=== PATIENT | female | born 1990 | race Two or more races ===

== ENCOUNTER → 2019-07-11 09:17 | Outpatient (CLI) | payer OTHER, SELFPAY ==
--- NOTE | ~2019-07-11 | US_ITS ---
EXAMINATION: US OB follow up DATE: 07/11/2019 09:41 INDICATION: Estimated weight, presentation, SEBASTIEN and placental location TECHNIQUE: Real-time transabdominal obstetric ultrasound. FINDINGS: Comparison to multiple prior studies sequentially, with oldest reviewed study dated 019. There is a single living fetus in vertex presentation. The placenta is anterior without placenta pre via. cardiac activity and movement is noted with a heart rate of 151 beats per minute. T he amniotic fluid volume is normal. SEBASTIEN measures 14.4 cm. The following biometric data were obtained: BPD: 89mm corresponds to gestational age 36 weeks 0 days. Head circumference: 332mm corresponds to gestational age 37 weeks 6 days. Abdominal circumference: 332mm corresponds to gestational age 37 weeks 1 days. Femur length: 68mm corresponds to gestational age 34 weeks 5 days. Estimated weight: 2947grams +/- 442grams.] IMPRESSION: 1. Single living intrauterine in vertex presentation presentation with an estimated gestat ional age of 35 weeks 3 days by inititial ultrasound. Appropriate interval growth. 2: Normal SEBASTIEN measures 14.4 cm. 3: Anterior placenta without previa. Reviewed, dictated and finalized at location A. [facility] [employer]SPORTATION INSPECTOR IMPRESSION: 1. Single living intrauterine in vertex presentation presentation wi th an estimated gestational age of 35 weeks 3 days by inititial ultrasound. Ap propriate interval growth. 2: Normal SEBASTIEN measures 14.4 cm. 3: Anterior placenta without previa.
== END ==
PROVIDERS: PCP Family Medicine; Visit Provider Obstetrics & Gynecology
DX: Z34.90 Encounter for supervision of normal pregnancy, unspecified, unspecified trimester (principal); Z3A.00 Weeks of gestation of pregnancy not specified
CPT/HCPCS: 76816

== ENCOUNTER 2019-08-05 09:25 | Inpatient (IN) | payer OTHER, SELFPAY ==
[2019-08-05] VITALS (82 sets, daily range): BP systolic 62–136; BP diastolic 39–93; PULSE 63–201; TEMP 36.4–37.3; O2SAT 88–100; BMI 31.7
[2019-08-05 11:03] LABS: Basophils Percent Auto 0.2 % (0.2-1.2); Eosinophils Absolute Auto 0.1 K/mm3 (0-0.3); Eosinophils Percent Auto 1.3 % (0-4.4); Hematocrit 35.4 % (37.0-47.0); Hemoglobin 10.8 g/dL (12.0-15.0); Immature Granulocyte Absolute 0.03 K/mm3 (0.00-0.031); Immature Granulocyte Percent A 0.5 % (0-0.5); Lymphocytes Absolute Auto 1.76 K/mm3 (0.9-3.2); Lymphocytes Percent Auto 31.8 % (18.3-44.2); Mean Corpuscular HGB Conc 30.5 g/dl (32-36); Mean Corpuscular Hemoglobin 24.4 pg (26-34); Mean Corpuscular Volume 79.9 fl (80-100); Mean Platelet Volume 10.6 fl (7.4-10.4); Monocytes Absolute Auto 0.4 K/mm3 (0.1-0.6); Neutrophils Absolute Auto 3.2 K/mm3 (1.3-6.7); Neutrophils Percent Auto 58.2 % (45.5-73.1); Platelet Count Result 263 k/mm3 (150-375); Red Blood Count 4.43 M/mm3 (4.2-5.4); Red Cell Distribution Width 14.7 % (11.5-14.5); White Blood Count 5.5 K/mm3 (4.5-10.0)
--- NOTE | 2019-08-05 11:11 | LDADM ---
This patient, Janice Galan, was admitted to Labor/Delivery/Recovery 107 on 08/05/19 at 09:25. Plans for labor, pain management and were discussed with patient. Patient/family oriented to hospital policies and general routines including ID bracelet, bed and alarms, visiting hours, pain management, procedures, bathroom and other care routines, personal items, smoking policy, room service/diet and guest tray routines, infant security routines, and visiting hours. Patient/Family are encouraged to report perceived risks to care and to ask questions if they do not understand what they are told or what they should do. See OBIX for further documentation.
[2019-08-05 11:55] LABS: HIV 1/2 Ab P24 Ag Result Negative (Negative)
--- NOTE | 2019-08-05 12:35 | WPDOBADMIT ---
Obstetrics - Admit Note Admission Note: record reviewed. Additions to the history and/or subsequent changes in the physical findings follow. 29 y/o at 39 weeks. She was in the office for a routine visit and had a gush of fluid. [facility] here on L&D was positive. She has been admitted for labor. GBS neg. AVSS NST reactive TOCO: contractions irregularly ABD soft, nontender, gravid, vertex EXT nontender Cervix 2cm per RN. A: IUP at term with SROM. P: Anticipate . Augment labor as needed.
[2019-08-05] MEDS: LACTATED RINGERS 1,000 ML 125 ML IV CONT ×3 (12:45→18:09)
[2019-08-05] MEDS: OXYTOCIN 30 UNITS/NS 500 ML 30 UNITS/500 ML BAG IV CONT (12:47)
--- NOTE | 2019-08-05 17:27 | WPDANESEPPF ---
Anes - Initial Pre Proc Eval Date/Time: 08/05/19 17:27 Surgeon: Chris Perez MD Pre Op Diagnosis: SROM/Labor Patient Data Age: 29 Gender: F Height: 5 ft 2 in Weight: 78.64 kg Last Vital Signs Temp 36.6 C 08/05/19 17:24 Pulse 82 08/05/19 17:26 BP 115/71 08/05/19 17:26 Pulse Ox 96 08/05/19 17:26 Allergies Allergy/AdvReac Type Severity Reaction Status Date / Time No Known Allergies Allergy Verified 07/08/19 11:40 Home Medications Medication Instructions Recorded Confirmed Type No Home Medications 07/08/19 08/05/19 History Laboratory Tests 08/05/19 08/05/19 08/05/19 10:51 10:51 10:51 WBC 5.5 K/mm3 K/mm3 (4.5-10.0) RBC 4.43 M/mm3 M/mm3 (4.2-5.4) Hgb 10.8 g/dL L g/dL (12.0-15.0) Hct 35.4 % L % (37.0-47.0) MCV 79.9 fl L fl (80-100) MCH 24.4 pg L pg (26-34) MCHC 30.5 g/dl L g/dl (32-36) RDW 14.7 % H % (11.5-14.5) Plt Count 263 k/mm3 k/mm3 (150-375) MPV 10.6 fl H fl (7.4-10.4) Immature Gran % (Auto) 0.5 % % (0-0.5) Neut % (Auto) 58.2 % % (45.5-73.1) Lymph % (Auto) 31.8 % % (18.3-44.2) [place] % (Auto) 8.0 % % (2.6-8.5) Eos % (Auto) 1.3 % % (0-4.4) Baso % (Auto) 0.2 % % (0.2-1.2) Lymph # (Auto) 1.76 K/mm3 K/mm3 (0.9-3.2) [place] # (Auto) 0.4 K/mm3 K/mm3 (0.1-0.6) Eos # (Auto) 0.1 K/mm3 K/mm3 (0-0.3) Baso # (Auto) 0.0 K/mm3 K/mm3 (0.0-0.1) Abs Immat Gran (auto) 0.03 K/mm3 K/mm3 (0.00-0.031) Absolute Neuts (auto) 3.2 K/mm3 K/mm3 (1.3-6.7) Absolute Nucleated RBC 0.0 K/mm3 K/mm3 (0.0-0.012) Nucleated RBC % 0.0 % % (0.0-0.2) RPR Pending HIV 1&2 Ab/P24 Ag 4thGn Negative (Negative) Blood Type Antibody Screen 08/05/19 10:51 WBC RBC Hgb Hct MCV MCH MCHC RDW Plt Count MPV Immature Gran % (Auto) Neut % (Auto) Lymph % (Auto) [place] % (Auto) Eos % (Auto) Baso % (Auto) Lymph # (Auto) [place] # (Auto) Eos # (Auto) Baso # (Auto) Abs Immat Gran (auto) Absolute Neuts (auto) Absolute Nucleated RBC Nucleated RBC % RPR HIV 1&2 Ab/P24 Ag 4thGn Blood Type O Positive Antibody Screen Negative Patient hx anesthesia problems: none Family hx anesthesia problems: none PMFSH Past Medical History Medical History Healthy adult Surgical History Surgical History Hx of LASIK Family History Family History Mother Diabetes mellitus Hyperlipidemia Father Hypertension Hyperlipidemia Social History Social History Smoking status: Never smoker Second hand tobacco smoke exposure: No Alcohol intake: never Substance use: never Gender identity (if verbalized by the patient): Female Spiritual care concerns: No Anes - Eval Final PreProcedure Day of Procedure 08/05/19 17:27 Patient weight: obese Neurological: alert and oriented ASA classification: II Emergent: no Anesthetic plan: proceed Anesthesia type and monitoring: regional epidural and standard monitoring Informed Consent: The patient's anesthetic plan and its attendant risks and benefits were discussed with the patient/family/POA. Questions were solicited and answers provided to the satisfaction of the patient/family/POA.
--- NOTE | 2019-08-05 22:16 | PM.OBPNLAB ---
Pain Control Date/time seen: 08/05/19 22:16 Comments: Comfortable with epidural, but feeling more pressure. Pelvic Exam Comments: AVSS NST reactive TOCO: contractions every 2-3 min Cervix C/+1 Assessment and Plan Comments: Begin pushing.
--- NOTE | 2019-08-05 23:32 | P.PCNOB_ITS ---
OB - Delivery Note Procedure Delivery date: 08/05/19 Procedure: SROM with Induction method: none Delivery augmentation: pitocin Delivery monitor: external FHT and external uterine Route of delivery: Laceration description: Perineal - 2nd Degree Delivery repair: vicryl (3-0) Specimen: Yes (cord blood) Estimated blood loss (mL): 75 Anesthesia type: Epidural Disposition: PACU Complications: Shoulder dystocia Narrative: 29 y/o at 39 weeks gestation who presented to the hospital after a gush of clear fluid. SROM was confirmed. Oxytocin was subsequently administered intravenously. She received an epidural for pain control. Her labor progressed and her cervix dilated completely. She pushed with good effort and delivered the 's head to the perineum from FRANSISCO position. A shoulder dystocia was encountered. Traction on the head and fundal pressure were strictly avoided. The posterior (left) shoulder was grasped and rotated in a counterclockwise fashion, dislodging the anterior shoulder and effecting delivery of the body. The nose and mouth were bulb suctioned. After a delay, the cord was clamped and cut. The infant was handed off the field. Cord blood was collected. The placenta delivered spontaneously and was grossly normal in appearance. The usual 3 vessel cord was noted. A second degree midline pe rineal laceration was sustained. This was reapproximated using 3 0 Vicryl in the usual layered fashion. Excellent hemostasis resulted as did excellent reapproximation of the normal anatomy. Needle and instrument counts were correct. The patient was taken to recovery room in stable condition. The infant went to the nursery in stable condition. I was present and scrubbed for the entire delivery. Baby Date of : 08/05/19 Time of : 23:11 Weeks of gestation at delivery: 39 Infant gender: Male Weight (pounds): 8 Weight (ounces): 3 presentation: vertex Placenta delivery description: Spontaneous and Normal Configuration cord vessel description: 3 Vessels score one minute: 7 score five minutes: 9
--- NOTE | 2019-08-05 23:37 | PM.OBDSVD ---
DS: Diagnosis Discharge Diagnosis (1) SROM (spontaneous rupture of membranes): Status: Acute (2) (normal spontaneous vaginal delivery): Code(s): O80 - Encounter for full-term uncomplicated delivery Status: Acute OB - DS: Summary OB Procedures : None OB Procedures Intrapartum: Spontaneous Vag Delivery OB Procedures: : None DS: Data Data Completed and Pending Labs on day of discharge: Labs from last 24 hours 08/05/19 08/05/19 08/05/19 10:51 10:51 10:51 WBC 5.5 RBC 4.43 Hgb 10.8 L Hct 35.4 L MCV 79.9 L MCH 24.4 L MCHC 30.5 L RDW 14.7 H Plt Count 263 MPV 10.6 H Immature Gran % (Auto) 0.5 Neut % (Auto) 58.2 Lymph % (Auto) 31.8 [place] % (Auto) 8.0 Eos % (Auto) 1.3 Baso % (Auto) 0.2 Lymph # (Auto) 1.76 [place] # (Auto) 0.4 Eos # (Auto) 0.1 Baso # (Auto) 0.0 Abs Immat Gran (auto) 0.03 Absolute Neuts (auto) 3.2 Absolute Nucleated RBC 0.0 Nucleated RBC % 0.0 RPR Pending HIV 1&2 Ab/P24 Ag 4thGn Blood Type O Positive Antibody Screen Negative 08/05/19 10:51 WBC RBC Hgb Hct MCV MCH MCHC RDW Plt Count MPV Immature Gran % (Auto) Neut % (Auto) Lymph % (Auto) [place] % (Auto) Eos % (Auto) Baso % (Auto) Lymph # (Auto) [place] # (Auto) Eos # (Auto) Baso # (Auto) Abs Immat Gran (auto) Absolute Neuts (auto) Absolute Nucleated RBC Nucleated RBC % RPR HIV 1&2 Ab/P24 Ag 4thGn Negative Blood Type Antibody Screen Discharge Plan Discharge Attending physician on discharge: Chris Perez Consulting providers: Julio C Burns Discharging Clinician: Chirs Perez Patient Disposition: Home, Self-Care Activity: pelvic rest Diet: regular Discharge Instructions: Call or return if temperature above 100.4? F, increased abdominal pain, increased vaginal bleeding or any new problems. Education: Mom and Baby Guide and Preeclampsia Handout Given to: Mother Follow-Up: Call your delivering provider's office for an appointment to be seen in: 4-6 weeks Mom and baby should come to the [facility] for the follow-up appointment. Appointment Date/Time: August 10, 2019 at 11:00 am What to expect at your follow-up visit: Physical Assessment Call [phone] if you are unable to keep your appointment time. BREAST CARE: 1. Wear a snug supportive bra. 2. For engorgement discomfort: Breast Feeding: A. Apply warm moist washcloths B. Express milk as needed to relieve engorgement C. Wear loose clothing 3. For sore nipples: A. Identify correct latch-on B. Apply warm moist washcloths before and after nursing C. Air dry nipples after nursing D. May apply Lansinoh cream to nipples EPISIOTOMY/PERINEAL CARE: 1. Until bleeding stops, use your fatoumata bottle after urinating 2. Change your pad frequently throughout the day 3. You may take sitz baths several times a day (fill your bathtub with warm water and soak for 20 minutes.) Do NOT bathe in the water 4. No tub baths until seen by your physician - You may shower ACTIVITY: 1. Rest as much as possible. 2. Do not exercise or lift anything heavier than your baby (such as laundry or other children.) 3. Avoid stairs or driving as much as possible. 4. Do not put anything into the vagina. No douching, tampons, or sexual activity until seen by physician. NOTIFY PHYSICIAN IF YOU HAVE ANY QUESTIONS OR IF ANY OF THE FOLLOWING SYMPTOMS OCCUR: 1. If your episiotomy becomes red, swollen, or more painful than what you have experienced in the hospital. 2. If your vaginal bleeding becomes foul smelling. 3. If your vaginal bleeding becomes more heavy than a period or if your bleeding changes from pink to bright red. However, you may pass an occasional walnut-sized clot once or twice for the first week . 4. If you exp
[2019-08-05] MEDS: OXYTOCIN 30 UNITS/NS 500 ML 30 UNITS/500 ML BAG 125 UNITS IV CONT (23:44)
[2019-08-06] VITALS (9 sets, daily range): BP systolic 98–118; BP diastolic 56–78; PULSE 77–119; RESP 16–18; TEMP 36.5–37.1; O2SAT 97–100
--- NOTE | 2019-08-06 01:44 | OBPPTRN ---
Patient transferred to post room #286 via wheelchair with baby in bassinet. Support person present. Oriented to unit, room, information board, rooming in, admission packet and security measures. Patient verbalizes understanding.
[2019-08-06] MEDS: IBUPROFEN 600 MG TABLET PO ×2 (02:15→13:39)
[2019-08-06 05:48] LABS: Hematocrit 28.2 % (37.0-47.0); Hemoglobin 8.8 g/dL (12.0-15.0)
[2019-08-06] MEDS: MULTIVIT/MIN/PREN/FOL AC/IRON TABLET 1 TAB PO (08:13)
[2019-08-06] MEDS: POLYSACCHARIDE IRON COMPLEX 150 MG CAPSULE PO ×2 (08:13→18:08)
[2019-08-06] MEDS: DOCUSATE SODIUM 100 MG CAPSULE PO ×2 (08:13→18:08)
[2019-08-06 08:51] LABS: Rapid Plasma Reagin Non-Reactive (NonReactive)
--- NOTE | 2019-08-06 17:01 | PM.OBPNVD ---
OB - PN: Subj Subjective Date/time seen: 08/06/19 17:01 Narrative: Pain OK. Would like cirumcision for son. OB - PN: Obj Data Labs CBC & Chem 7: 08/06/19 05:36 Labs: Laboratory Results - last 24 hr 08/05/19 08/06/19 10:51 05:36 Hgb 8.8 L Hct 28.2 L RPR Non-reactive OB - PN A/P Plan Comments: A: PPD#1, doing well. P: Routine care. Reviewed circ. Exam Psych: Other: AVSS ABD soft, nontender, fundus firm EXT nontender
[2019-08-07] MEDS: IBUPROFEN 600 MG TABLET PO ×2 (02:20→11:44)
--- NOTE | 2019-08-07 07:21 | PM.OBDSVD ---
OB - DS: Summary OB Procedures : None OB Procedures Intrapartum: Spontaneous Vag Delivery OB Procedures: : None Status at Discharge Functional status at discharge: independent ambulation Overall status at discharge: patient is back to baseline Time Spent with Patient Time attestation: Total time spent providing and/or coordinating discharge services: Time spent: Less than 30 minutes Exam Const: General: comfortable and no acute distress Resp: Effort & Inspection: normal respiratory effort Auscultation: clear to auscultation bilaterally Cardio: Rate: regular rate GI: GI Palp: Yes Soft to palpation Auscultation: normal bowel sounds Other: Fundus firm below umbilicus Psych: Appearance: grossly normal Mental Status: mental status grossly normal Affect: normal affect DS: Data Data Completed and Pending Labs on day of discharge: Labs from last 24 hours 08/05/19 10:51 RPR Non-reactive Discharge Plan Discharge Attending physician on discharge: Chris Perez Discharging Clinician: Chris Perez Patient Disposition: Home, Self-Care Activity: pelvic rest Diet: regular Discharge Instructions: Call or return if temperature above 100.4? F, increased abdominal pain, increased vaginal bleeding or any new problems. Stand Alone Forms: General Discharge Information Follow-up/Referrals: Chris Perez MD [Physician] - (6 weeks) Discharge Medications: New ibuprofen 600 mg tablet 600 mg PO Q6H PRN (Reason: cramps) Qty: 30 RF: 0 ferrous sulfate 325 mg (65 mg iron) tablet 325 mg PO DAILY Qty: 30 RF: 0 Dermoplast (with menthol) 20-0.5 % Aerosol 1 spray topical PRN PRN (Reason: Perineal Discomfort) Qty: 1 RF: 0 docusate sodium 100 mg Capsule 100 mg PO BID PRN (Reason: Constipation) Qty: 60 RF: 0 ibuprofen 600 mg Tablet 600 mg PO Q6H PRN (Reason: Cramping) Qty: 30 RF: 0 Jby-I-Ydgnob Cream 1 applic topical PRN PRN (Reason: Sore Nipples) Qty: 1 RF: 0 acetaminophen [Mapap (acetaminophen)] 325 mg Tablet 650 mg PO Q6H PRN (Reason: Mild Pain (1-3) Or Headache) Qty: 30 RF: 0 No Action No Home Medications RF: 0 Date of admission: 08/05/19 09:25 Primary Care Provider: Mimi Davis Admitting Provider: Chris Perez Attending physician on admission: Chris Perez
[2019-08-07] MEDS: DOCUSATE SODIUM 100 MG CAPSULE PO (08:11)
[2019-08-07] MEDS: MULTIVIT/MIN/PREN/FOL AC/IRON TABLET 1 TAB PO (08:11)
[2019-08-07] MEDS: POLYSACCHARIDE IRON COMPLEX 150 MG CAPSULE PO (08:11)
--- NOTE | 2019-08-07 08:15 | PC.NURSE ---
Patient instructed to view the discharge video Mother & Baby Care, The First Two Weeks online. Patient was given the opportunity and encouraged to ask questions. Patient verbalized understanding of information shared and has been given the mother/baby guide for home reference.
--- NOTE | 2019-08-07 09:00 | PC.NURSE ---
Mother is able to independently latch infant with appropriate positioning/alignment. She reports slight nipple tenderness, is feeding as required and waking to feed if needed. Requested mother call out next feeding for observation of latch due to tenderness. Infant has had 8 effective feedings in the past 24 hours, and is currently meeting outcomes for weight, output, jaundice and feeding frequencies. Mother states she feels confident to continue effective at home. Reviewed transition to breast milk, signs of adequate intake, and engorgement/relief. Instructed to call ICP if intake/output less than required. Reviewed regular medications mother is taking. Information provided per Alexa. Reviewed community resources on the [facility] website and in the Mom/Baby guide. Information on outpatient services provided. Mother has no further questions at this time.
[2019-08-07 09:40] VITALS: BP 108/74; PULSE 93; RESP 18; TEMP 37.2; O2SAT 100
[2019-08-10 11:26] VITALS: BP 105/70; PULSE 90; RESP 20; TEMP 37.2
== END 2019-08-07 12:44 | disposition home or self-care (01) | DRG 807 ==
LOC: ANHLDR 23:38 → ANHOB2 08-07 09:55 → ANHLDR 08-10 13:31 → ANHOB2 08-10 13:31
PROVIDERS: Admitting Provider Obstetrics & Gynecology; PCP Family Medicine; Visit Provider Student in an Organized Health Care Education/Training Program
DX: O99.214 Obesity complicating childbirth (principal); Z37.0 Single live birth; Z3A.39 39 weeks gestation of pregnancy; O36.8330 Maternal care for abnormalities of the fetal heart rate or rhythm, third trimester, not applicable or unspecified; O66.0 Obstructed labor due to shoulder dystocia; O70.1 Second degree perineal laceration during delivery; E66.9 Obesity, unspecified
CPT/HCPCS: 36415; 84112; 85014; 85018; 85025; 86592; 86703; 86850; 86900; 86901; A9270; G0432; J2590; J2795; J3010; J7120